=== PATIENT | male | born 1990 | race American Indian/Alaskan Native ===

== ENCOUNTER 2020-04-27 15:23 | Emergency (ER) | payer SELFPAY ==
[2020-04-27 15:53] LABS: Hematocrit 49.3 % (35.5-45.6); Hemoglobin 16.6 gm/dl (11.8-15.2); Mean Corpuscular HGB Conc 34 % (32-34); Mean Corpuscular Volume 87 fl (84-94); Platelet Count 246 K/mm3 (140-440); Red Blood Count 5.67 M/mm3 (3.65-5.03); Red Cell Distribution Width 13.3 % (13.2-15.2)
[2020-04-27 16:03] LABS: INR 1.01 (0.87-1.13)
[2020-04-27 16:04] LABS: Partial Thromboplastin Time 26.6 Sec. (24.2-36.6)
--- NOTE | 2020-04-27 16:07 | Emergency Department Report ---
HPI - General Time Seen by Provider: 04/27/20 15:39 - HPI HPI: Room 36 The patient is a 30-year-old male present with a chief complaint of diffuse body aches fatigue and not mental status. The patient states he received a Covid vaccine 04/16/2020 later that evening start developing body aches and chills. Patient states he developed a headache and progressive body aches. The patient came into work today and was noted to have decreased responsiveness and subsequently EMS was called. Patient denies paresthesia states his main complaint is total body soreness ED Past Medical Hx - Past Medical History Previous Medical History?: Yes Hx Hypertension: Yes Hx Asthma: Yes - Family History Family history: no significant - Social History Smoking Status: Unknown if ever smoked Substance Use Type: None - Medications Home Medications: Home Medications Medication Instructions Recorded Confirmed Last Taken Type Cyclobenzaprine HCl [Flexeril 5 MG 5 mg PO TID #20 tab 04/27/20 Unknown Rx TAB] HYDROcodone/APAP 5-325 [[place] 1 - 2 each PO Q6HR PRN #10 tablet 04/27/20 Unknown Rx 5/325] Ibuprofen [Motrin 800 MG tab] 800 mg PO Q8HR PRN #20 tablet 04/27/20 Unknown Rx ED Review of Systems ROS: Stated complaint: POSS CVA Other details as noted in HPI Constitutional: chills. denies: fever ENT: denies: throat pain Respiratory: no symptoms reported Endocrine: no symptoms reported Gastrointestinal: denies: vomiting Genitourinary: denies: dysuria Musculoskeletal: myalgia Neurological: headache Physical Exam - Physical Exam Vital Signs: Vital Signs 04/27/20 04/27/20 04/27/20 15:23 15:31 15:51 Temperature 98.5 F Pulse Rate 104 H 90 94 H Respiratory 20 22 21 Rate Blood Pressure 171/102 148/82 O2 Sat by Pulse 97 96 98 Oximetry Physical Exam: GENERAL: The patient is well-developed well-nourished male lying on stretcher not appearing to be in acute distress. Makes eye contact but does not respond immediately HEENT: Normocephalic. Atraumatic. Extraocular motions are intact. Patient has moist mucous membranes. NECK: Supple. Trachea midline CHEST/LUNGS: Clear to auscultation. There is no respiratory distress noted. HEART/CARDIOVASCULAR: Regular. There is no tachycardia. There is no gallop rub or murmur. ABDOMEN: Abdomen is soft, nontender. Patient has normal bowel sounds. There is no abdominal distention. SKIN: There is no rash. There is no edema. There is no diaphoresis. NEURO: The patient is awake but lethargic. Patient is oriented. The patient is cooperative. The patient has no focal neurologic deficits. The patient has normal speech. Cranial nerves II through XII grossly intact. Patient able to hold either arm at 45 degrees for 10 second count without drifting. Patient exhibits difficulty flexing both knees and hips secondary to muscle soreness. GCS 15 MUSCULOSKELETAL: There is no evidence of acute injury. ED Course Vital Signs 04/27/20 04/27/20 04/27/20 15:23 15:31 15:51 Temperature 98.5 F Pulse Rate 104 H 90 94 H Respiratory 20 22 21 Rate Blood Pressure 171/102 148/82 O2 Sat by Pulse 97 96 98 Oximetry - Consultations Consultation #1: 04/27/20 15:13 Prehospital EKG sent to and discussed with inspector and tester Dr. Acosta- LVH with strain pattern. No STEMI 04/27/20 16:13 Third EKG sent to Dr Acosta-no change ED Medical Decision Making - Lab Data Result diagrams: 04/27/20 15:30 04/27/20 15:30 - EKG Data -: EKG Interpreted by Me EKG shows normal: sinus rhythm Rate: normal - EKG Data When compared to previous EKG there are: previous EKG unavailable Interpretation: LVH (With strain) - Radiology Data Radiology results: report reviewed (CT head), image reviewed (CT head, chest x- ray) interpreted by me: Chest x-ray-no definite focal infiltrates, no pneumothorax. No foreign body seen [facility] [address] [place] [address] Cat Scan Report Signed Patient: BRYON KIM MR #: [id number] : 1990 Acct:[id number] Age/Sex: 30 / M ADM Date: 04/27/20 Loc: ED Attending Dr: Ordering Physician: YANELI ALVARADO MD Date of Service: 04/27/20 Procedure(s): CT head/brain wo con Accession Number(s): [id number] cc: YANELI ALVARADO MD CT HEAD WITHOUT CONTRAST INDICATION / CLINICAL INFORMATION: Facial numbness, altered mental status, headache. Code stroke TECHNIQUE: All CT scans at this location are performed using CT dose reduction for ALARA by means of automated exposure control. COMPARISON: CT scan dated 08/29/2014 FINDINGS: HEMORRHAGE: None. EXTRA-AXIAL SPACES: Normal in size and morphology for the patient's age. VENTRICULAR SYSTEM: Normal in size and morphology for the patient's age. CEREBRAL PARENCHYMA: No significant abnormality. No acute territorial infarct. MIDLINE SHIFT / HERNIATION: None. CEREBELLUM / BRAINSTEM: No significant abnormality. ORBITS: Normal as visualized. SOFT TISSUES: No significant abnormality. SKULL: No significant abnormality. PARANASAL SINUSES / MASTOID AIR CELLS: Normal as visualized. ADDITIONAL FINDINGS: None. IMPRESSION: 1. No acute intracranial abnormality. CODE STROKE: Time of Communication (FLASK PUSHER/CDT): 0354 Licensed Practitioner Receiving Report: Dr. Alvarado Signer Name: Sotero Call MD Signed: 04/27/2020 4:05 PM Workstation Name: [id number] Transcribed By: SS Dictated By: Sotero Call MD Electronically Authenticated By: Sotero Call MD Signed Date/Time: 04/27/20 1605 DD/ 1601 TD/TT: [facility] [address] [place] [address] XRay Report Signed Patient: BRYON KIM MR #: [id number] : 1990 Acct:[id number] Age/Sex: 30 / M ADM Date: 04/27/20 Loc: ED Attending Dr: Ordering Physician: YANELI ALVARADO MD Date of Service: 04/27/20 Procedure(s): XR chest 1V ap Accession Number(s): [id number] cc: YANELI ALVARADO MD Fluoro Time In Minutes: CHEST 1 VIEW 04/27/2020 4:52 PM INDICATION / CLINICAL INFORMATION: Chills. COMPARISON: 11/27/2018 FINDINGS: SUPPORT DEVICES: None. HEART / MEDIASTINUM: No significant abnormality. LUNGS / PLEURA: No significant pulmonary or pleural abnormality. No pneumothorax. ADDITIONAL FINDINGS: No significant additional findings. IMPRESSION: 1. No acute findings. Signer Name: Sotero Call MD Signed: 04/27/2020 5:57 PM Workstation Name: [email or web address] Transcribed By: SS Dictated By: Sotero Call MD Electronically Authenticated By: Sotero Call MD Signed Date/Time: 04/27/201756 DD/ 56 TD/TT: - Medical Decision Making Patient states he feels improved and is more alert at this time. Patient ambulates without difficulty. 2-minute walking SPO2 sats remained above 95%. Strong warnings given - Differential Diagnosis Vaccination reaction, COVID-19 Critical care attestation.: If time is entered above; I have spent that time in minutes in the direct care of this critically ill patient, excluding procedure time. ED Disposition Clinical Impression: Post-vaccination reaction, Myalgia, Headache Disposition: - TO HOME OR SELFCARE Is pt being admited?: No Does the pt Need Aspirin: No Condition: Stable Additional Instructions: Return to the emergency department should you develop worsening symptoms, inability to tolerate food or liquids, high fever or any other concerns Prescriptions: Cyclobenzaprine HCl [Flexeril 5 MG TAB] 5 mg PO TID #20 tab Ibuprofen [Motrin 800 MG tab] 800 mg PO Q8HR PRN #20 tablet PRN Reason: Pain, Moderate (4-6) HYDROcodone/APAP 5-325 [[place] 5/325] 1 - 2 each PO Q6HR PRN #10 tablet PRN Reason: Pain Referrals: PRIMARY MD CARON [Primary Care Provider] - 3-[address] [facility] [Provider Group] - 3-5 Days Time of Disposition: 18:36
[2020-04-27 16:09] LABS: Creatine Kinase MB 4.4 ng/mL (0.0-4.0)
[2020-04-27 16:10] LABS: BUN/Creatinine Ratio 11; Blood Urea Nitrogen 14 mg/dL (9-20); Calcium 9.5 mg/dL (8.4-10.2); Hemolysis Index 33
--- NOTE | 2020-04-27 16:10 | Cat Scan Report ---
CT HEAD WITHOUT CONTRAST INDICATION / CLINICAL INFORMATION: Facial numbness, altered mental status, headache. Code stroke TECHNIQUE: All CT scans at this location are performed using CT dose reduction for ALARA by means of automated exposure control. COMPARISON: CT scan dated 08/29/2014 FINDINGS: HEMORRHAGE: None. EXTRA-AXIAL SPACES: Normal in size and morphology for the patient's age. VENTRICULAR SYSTEM: Normal in size and morphology for the patient's age. CEREBRAL PARENCHYMA: No significant abnormality. No acute territorial infarct. MIDLINE SHIFT / HERNIATION: None. CEREBELLUM / BRAINSTEM: No significant abnormality. ORBITS: Normal as visualized. SOFT TISSUES: No significant abnormality. SKULL: No significant abnormality. PARANASAL SINUSES / MASTOID AIR CELLS: Normal as visualized. ADDITIONAL FINDINGS: None. IMPRESSION: 1. No acute intracranial abnormality. CODE STROKE: Time of Communication (CAREER DEVELOPMENT FACILITATOR/CDT): 7934 Licensed Practitioner Receiving Report: Dr. Blue Signer Name: Sotero Call MD Signed: 04/27/2020 4:05 PM Workstation Name: [id number]
[2020-04-27] MEDS ORDERED: cloNIDine 0.1 MG TAB PO ONE (16:36)
[2020-04-27] MEDS ORDERED: SODIUM CHLORIDE 0.9% 1000 ML 1,000 ML IV ONE (16:37)
--- NOTE | 2020-04-27 17:01 | Consultation ---
History of Present Illness History of present illness: [facility] Consult Note # Demographics Consult Type: 0-6 hour Stroke First Name: Marco Antonio Pat Last Name: Chris Date of : 1990 Age: 30 Gender: male Time of initial page ([place] ): 04-27-2020, 14:38:00 Time of return call ([place] Time): 04-27-2020, 14:38:00 # HPI Additional History: 30M with HTN, asthma presents with facial numbness and decreased responsiveness. On presentation to ED, further questioning reveals that he did not have facial numbness but is somewhat lethargic. Got COVID19 vaccine 04/16 and has been progressively having myalgias since. Today with increasing somnolence. CT head reportedly normal. Today felt like he couldn't really walk and that he was having worsening headache. Chills have stopped, but everything else has been waxing and waning. Had a fever to 100.2F on 04/17, responded to ibuprofen (decreased to 98.x) and has not recurred. Has been taking acetaminophen for the headache about once per day, which does help. Patient works in [employer]; has had limited PPE access and there have been several patients with COVID. # Scores Time of exam and NIHSS ([place] ): 04-27-2020, 14:47:00 # Data Time Head CT personally ready by me ([place] ): 04-27-2020, 14:[address]: per radiologist read, no bleed # Assessment Impression: Myalgias, concern for COVID19 infection # Plan Thrombolytic/Intervention: NOT IV Alteplase or IA Intervention Alteplase/Intraarterial Exclusion: IV alteplase and IA intervention considered but not recommended as this patient's symptoms are not clinically consistent with an assumed diagnosis of stroke Additional Recommendations: Hydration Tylenol as needed for headache Ibuprofen as needed for myalgias Disposition: observation # Logistics Telemedicine: Interactive 2 way audio and visual telecommunication technology was utilized during this visit Medications and Allergies Allergies Allergy/AdvReac Type Severity Reaction Status Date / Time No Known Allergies Allergy Unverified 04/27/20 15:37 Active Meds: Active Medications Sodium Chloride (Nacl 0.9% 1000 Ml) 1,000 mls @ 999 mls/hr IV ONCE ONE Stop: 04/27/20 17:37 Last Admin: 04/27/20 16:43 Dose: 999 mls/hr Documented by: Physical Examination - Vital Signs Vital Signs: Vital Signs Temp Pulse Resp BP Pulse Ox 98.5 F 104 H 20 171/102 97 04/27/20 15:23 04/27/20 15:23 04/27/20 15:23 04/27/20 15:23 04/27/20 15:23 Results - Laboratory Findings CBC and BMP: 04/27/20 15:30 04/27/20 15:30 Abnormal Lab Findings: Abnormal Labs 04/27/20 04/27/20 15:30 15:30 RBC 5.67 H Hgb 16.6 H Hct 49.3 H Total Creatine Kinase 282 H CK-MB (CK-2) 4.4 H
[2020-04-27 18:00] VITALS: BP 130/83
--- NOTE | 2020-04-27 18:02 | XRay Report ---
CHEST 1 VIEW 04/27/2020 4:52 PM INDICATION / CLINICAL INFORMATION: Chills. COMPARISON: 11/27/2018 FINDINGS: SUPPORT DEVICES: None. HEART / MEDIASTINUM: No significant abnormality. LUNGS / PLEURA: No significant pulmonary or pleural abnormality. No pneumothorax. ADDITIONAL FINDINGS: No significant additional findings. IMPRESSION: 1. No acute findings. Signer Name: Sotero Call MD Signed: 04/27/2020 5:57 PM Workstation Name: [id number]
[2020-04-27 19:01] LABS: Total Cells Counted 100
[2020-04-27 19:04] LABS: Platelet Estimate Consistent w Auto; RBC Morphology Normal
== END 2020-04-27 18:59 | disposition home or self-care (01) ==
LOC: ED 15:23
DX: T88.1XXA Other complications following immunization, not elsewhere classified, initial encounter (principal); M79.10 Myalgia, unspecified site; R51.9 Headache, unspecified; I10 Essential (primary) hypertension; J45.909 Unspecified asthma, uncomplicated; Z79.899 Other long term (current) drug therapy; Y93.89 Activity, other specified
CPT/HCPCS: 36415; 70450; 71045; 80048; 82550; 82553; 84484; 85007; 85025; 85610; 85670; 85730; 93005; 96360; 99285; J7030; 80320; G0480